=== PATIENT | female | born 1960 | race Caucasian/White ===

== ENCOUNTER → 2018-09-30 | Outpatient (CLI) | payer OTHER | LOC: CIMAGING 14:11 | PROVIDERS: ATTEND Orthopaedic Surgery | DX: Z01.818 Encounter for other preprocedural examination (principal); M17.11 Unilateral primary osteoarthritis, right knee ==

== ENCOUNTER 2018-10-11 05:54 | Inpatient (IN) | payer OTHER ==
--- NOTE | 2018-10-10 12:57 | PDGENHP ---
History & Physical Chief Complaint: Right knee osteoarthritis History of Present Illness: Tracy is a pleasant 57 year old female with right knee osteoarthritis. She has undergone conservative treatment and has persistent pain which is limiting her daily life. She has elected to proceed with right total knee arthroplasty. Pertinent Past, Social, Family History: PMH: arthritis, thryoid problems. SH: nonsmoker. FH: non-contributory Relevant Physical Exam: Patient is a 57-year-old female. HEENT: Pupils equal, round, and reactive to light. CHEST: Clear to auscultation. HEART: Regular rate and rhythm. ABDOMEN: Soft, nontender. EXTREMITIES: Right knee has mild varus bow with osteophytic spurring noted to the patellofemoral medial compartment. Cardiorespiratory Assessment: RRR, CTAB
[2018-10-11] MEDS ORDERED: TRANEXAMIC ACID 3,000 MG in NS (SYRINGE) 50 ML IRR ONE (06:00)
[2018-10-11] MEDS ORDERED: ROPIVACAINE 0.2% 80 MG, EPINEPHrine 0.2 MG, KETOROLAC TROMETHAMINE 30 MG, morphINE 10 M... IU ONE (06:00)
[2018-10-11] MEDS ORDERED: ceFAZolin 2 GM/DEXTROSE 100 ML IV ONE (06:07)
[2018-10-11] MEDS ORDERED: LR 1,000 ML IV ONE (06:08)
[2018-10-11] MEDS ORDERED: POLYMYXIN B SULFATE 500,000 UNIT/10 ML SYR IRR ONE (06:39)
[2018-10-11] MEDS ORDERED: CALCIUM CHLORIDE 1 GM/10 ML INJ ONE (06:39)
[2018-10-11] MEDS ORDERED: THROMBIN (BOVINE) 5,000 UNIT VIAL TP ONE (06:39)
[2018-10-11] MEDS ORDERED: BUPIVACAINE/EPI 0.5% 30 ML SDV ONE (06:40)
[2018-10-11] MEDS ORDERED: BACITRACIN 50,000 UNITS/10 ML SYR IRR ONE (06:40)
[2018-10-11] MEDS ORDERED: TRANEXAMIC ACID 3,000 MG/50 ML BAG IRR ONE (06:41)
--- NOTE | 2018-10-11 06:42 | PDANEPAE ---
ANE History of Present Illness oA here for TKA ANE Past Medical History - Cardiovascular History Hx Hypertension: No Hx Arrhythmias: No Hx Chest Pain: No Hx Coronary Artery / Peripheral Vascular Disease: No Hx CHF / Valvular Disease: No Hx Palpitations: No - Pulmonary History Hx COPD: No Hx Asthma/Reactive Airway Disease: No Hx Recent Upper Respiratory Infection: No Hx Oxygen in Use at Home: No Hx Sleep Apnea: No Sleep Apnea Screening Result - Last Documented: Negative - Neurologic History Hx Cerebrovascular Accident: No Hx Seizures: No Hx Dementia: No - Endocrine History Hx Diabetes: No - Renal History Hx Renal Disorders: No - Liver History Hx Hepatic Disorders: No - Neurological & Psychiatric Hx Hx Neurological and Psychiatric Disorders: No - Cancer History Hx Cancer: No - Congenital Disorder History Hx Congenital Disorders: No - GI History Hx Gastrointestinal Disorders: No - Other Health History Other Health History: none - Chronic Pain History Chronic Pain: No - Surgical History Prior Surgeries: breast aumentation 2016 ANE Review of Systems Review of Systems: - Exercise capacity Exercise capacity: >=4 METS METS (RN): 6 METS ANE Patient History - Allergies Allergies/Adverse Reactions: No Known Allergies Allergy (Verified 10/03/18 08:45) - Home Medications Home Medications: Acetaminophen [Tylenol ES 500 mg (*)] 1,000 mg PO HS 10/03/18 [Last Taken Unknown] Acetaminophen [Tylenol ES 500 mg (*)] 500 - 1,000 mg PO BID@, PRN 10/03/18 [ Last Taken 10/10/18 22:00] Ascorbic Acid [Vitamin C 500 mg (*)] 500 mg PO DAILY 10/03/18 [Last Taken 08:00] Doxylamine Succinate [Unisom] 25 mg PO HS PRN 10/03/18 [Last Taken 10/10/18 22: 00] Herbals/Supplements -Info Only 1 ea PO DAILY 10/03/18 [Last Taken 10/03/18] Pregabalin [Lyrica 50mg (*)] 50 mg PO HS 10/03/18 [Last Taken 10/10/18 22:00] Valacyclovir HCl [Valtrex] 1,000 mg PO TID PRN 10/03/18 [Last Taken 10/08/18] traZODone [traZODONE 50MG (*)] 50 mg PO HS 10/03/18 [Last Taken 10/10/18 22:00] Levothyroxine Sodium 88 mcg 10/05/18 [Last Taken 10/10/18 08:00] - NPO status NPO Status: no food or drink >8 hours NPO Since - Liquids (Date): 10/11/18 NPO Since - Liquids (Time): 04:00 NPO Since - Solids (Date): 10/10/18 NPO Since - Solids (Time): 23:00 - Anes Hx Anes Hx: no prior problems - Smoking Hx Smoking Status: Never smoked - Alcohol Use Alcohol Use: None - Family Anes Hx Family Anes Hx: none Family Hx Anesthesia Complications: none ANE Labs/Vital Signs - Vital Signs Vital Signs: reviewed preoperatively; see RN documention for details Height: 172.72 cm Weight: 87.543 kg ANE Physical Exam - Airway Neck exam: FROM Mallampati Score: Class 2 Mouth exam: normal dental/mouth exam - Pulmonary Pulmonary: no respiratory distress, clear to auscultation - Cardiovascular Cardiovascular: regular rate and rhythym, no murmur, rub, or gallop - ASA Status ASA Status: II ANE Anesthesia Plan Anesthesia Plan: GA with mask, spinal Regional Anesthesia: single shot NB, adductor canal FNB Total IV Anesthesia: Yes
[2018-10-11] MEDS ORDERED: MIDAZOLAM 2 MG/2 ML VIAL IVP ONE (06:43)
[2018-10-11] MEDS ORDERED: PROPOFOL/EMULSION 500 MG/50 ML BOTTLE IV ONE ×2 (06:52→08:22)
--- NOTE | 2018-10-11 07:13 | PDHPUP ---
History & Physical Update H&P update statement: This history and physical update is based on an assessment of the patient which was completed after admission or registration (within 24 hours), but prior to the surgery/procedure. H&P update: H&P reviewed & patient examined, no change in patient's condition since H&P completed
[2018-10-11] MEDS ORDERED: NALOXONE HCL 0.4 MG/ML INJ IVP PRN (08:04)
[2018-10-11] MEDS ORDERED: ACETAMINOPHEN 500 MG TAB PO PRN (08:04)
[2018-10-11] MEDS ORDERED: PROMETHAZINE HCL 25 MG/ML INJ IVP PRN ×2 (08:04→09:13)
[2018-10-11] MEDS ORDERED: ONDANSETRON 4 MG/2 ML VIAL IVP PRN (08:04)
[2018-10-11] MEDS ORDERED: HYDROCODONE/APAP 5/325 TAB PO PRN (08:04)
[2018-10-11] MEDS ORDERED: DIAZEPAM 10 MG/2 ML SYR IVP PRN (08:04)
[2018-10-11] MEDS: POVIDONE-IODINE 20 ML in SODIUM CL IRRIG SOLUTION 500 ML IRR ONE ×2 (08:46→09:08)
[2018-10-11] MEDS ORDERED: DIPHENOXYLATE/ATROPINE LOMOTIL 1 TAB PO PRN (09:13)
[2018-10-11] MEDS ORDERED: POLYETHYLENE GLYCOL 3350 17 GM PKT PO PRN (09:13)
[2018-10-11] MEDS ORDERED: TAPENTADOL HCL 50 MG TAB PO PRN (09:13)
[2018-10-11] MEDS ORDERED: METOCLOPRAMIDE 10 MG/2 ML VIAL IVP PRN (09:13)
[2018-10-11] MEDS ORDERED: TEMAZEPAM 15 MG CAP PO PRN (09:13)
[2018-10-11] MEDS ORDERED: ONDANSETRON DISINTEGRATING 4 MG TAB PO PRN (09:13)
[2018-10-11] MEDS ORDERED: MAGNESIUM HYDROXIDE 30 ML UDCUP PO PRN (09:13)
[2018-10-11] MEDS ORDERED: PROMETHAZINE HCL 25 MG SUPPR PR PRN (09:13)
[2018-10-11] MEDS ORDERED: CYCLOBENZAPRINE 10 MG TAB PO PRN (09:13)
[2018-10-11] MEDS ORDERED: LACTULOSE 20 GM/30 ML UDCUP PO PRN (09:13)
[2018-10-11] MEDS ORDERED: BISACODYL 10 MG SUPP PR PRN (09:13)
--- NOTE | 2018-10-11 09:13 | POSTOPPROG ---
Post Op Note Date of Operation: 10/11/18 Surgeon: Nilam Escobar Field Services Manager: coltrain Anesthesia: Epidural, IV Sedation, Other (Specify) Pre-op Diagnosis: r knee oa Procedure: r tkr Inf/Abcess present in the surg proc area at time of surgery?: No Depth: Deep Incisional (Fascial) EBL: 100-500
[2018-10-11] MEDS ORDERED: LR 1,000 ML IV SCH (09:30)
--- NOTE | 2018-10-11 09:30 | POSTANESTH ---
Post Anesthetic Evaluation Cardiovascular Status: Normal, Stable, Similar to Pre-Op Cond Respiratory Status: Normal, Stable, Similar to Pre-op Cond. Level of Consciousness/Mental Status: Can Participate in Eval, Alert and Oriented Pain Control: Adequate, Prn Tx Ordered Nausea/Vomiting Control: Adequate, Prn Tx Ordered Complications Possibly Related to Anesthesia: None Noted
[2018-10-11] MEDS ORDERED: fentaNYL 100 MCG/2 ML INJ ONE (09:32)
[2018-10-11] MEDS: fentaNYL 100 MCG/2 ML INJ IVP PRN ×2 (09:36→09:47)
[2018-10-11] MEDS ORDERED: valACYclovir 500 MG TAB PO PRN (09:45)
[2018-10-11] MEDS ORDERED: HYDROmorphONE/DILAUDID 1 MG/ML INJ ONE (09:59)
[2018-10-11] MEDS: HYDROmorphONE/DILAUDID 1 MG/ML INJ IVP PRN ×3 (09:59→10:20)
[2018-10-11] MEDS ORDERED: oxyCODONE IR 5 MG TAB ONE (10:15)
[2018-10-11] MEDS: oxyCODONE IR 5 MG TAB PO PRN ×7 (10:17→22:32)
--- NOTE | 2018-10-11 10:54 | GOP ---
[f rep st] OPERATIVE REPORT DATE OF OPERATION: 10/11/2018 SURGEON: Nilam Escobar MD SALON STYLIST: Daniel Villaseñor, CSFA, LSA, whose presence was medically necessary. ANESTHESIA: LMA plus adductor nerve block per surgeon request. PREOPERATIVE DIAGNOSIS: Right knee osteoarthritis. POSTOPERATIVE DIAGNOSIS: Right knee osteoarthritis. PROCEDURE PERFORMED: Right total knee arthroplasty with Issa robot. FINDINGS: INDICATIONS: This is a 57-year-old female with a several-month history of right knee pain worsening with use and with time despite multiple conservative measures. A recent MRI reveals medial and later al meniscal tears, along with severe osteoarthritic changes. She wishes to have surgery in order to resolve the problem. DESCRIPTION OF PROCEDURE: The patient was brought to the operating room after the right side had bee n identified as the correct side by the patient, nurse, and physician. Once in the operating room, s he was placed under general anesthesia using LMA. She had a tourniquet placed around the upper porti on of the right thigh. The right lower extremity was then sterilely prepped and draped in usual [facility] ion using GSI solution. Once prepped and draped, the limb was exsanguinated, tourniquet inflated to 250 mmHg. A linear incision was made on the anterior portion of the knee 1 handbreadth above and below the hernandez lla with sharp dissection carried down through the skin and subcutaneous layers with bleeding control led using electrocautery. Tibial and femoral array markers were put into place, and then femoral and tibial computer arrays were drilled into the bone and put into place and locked into place. Registr ation was done with the computer moving the leg in a clockwise fashion and being able to aimee the med ial and lateral malleoli. Marking was then done for the femur and the tibia and then rechecks were d one using the computer once positioned. The ACL and the medial and lateral menisci were removed. Th e robot MAKOplasty arm was brought in attached to the saw. Measurements were done with the saw, and the saw was used to complete the distal femoral cut, anterior cut, chamfer cuts, and posterior cuts f or the femur, and then for the tibia, a size 4 tibial trial was put into place, along with polyethyle ne insert, and the knee was able to achieve full extension. Good stability in varus/valgus stresses. Therefore, the trials were removed. Tibia was brought to maximal flexion. Tibia subluxed anteriorly . A size 4 tray trial was put into place, had a slight external rotation. Once pinned into place, a keel punch passed through the tibia. The trial was removed, as well as the keel punch, and then the drill guide placed on the proximal tibia, and drill holes were made, at which point a size 4 Triathl on Tritanium tibial component was put into place and noted to fit securely. A size 4 right cruciate- retaining femoral component from Mayer was put into place and noted to fit securely, and then a siz e four 9 mm Triathlon tibial insert was put into place and noted to fit securely. The knee was able to, again, achieve full extension. The leg brought to full extension. The patella was everted, held in place with towel clamps. Spurs were removed from around the patella, and soft tissue dissection was carried around the patella. The patella was measured to be 20 mm in thickness. Oscillating saw was used to remove the posterior portion of the patella, leaving 14 mm of bone. Multiple trials were placed on the patella, noting a 32 mm button fit best. Therefore, lug holes were drilled for a 32 m m button, and a 32 mm asymmetric Triathlon Tritanium patella from Mayer was put into place and note d to fit securely. Joint cocktail was injected into the posterior capsule, the periosteum of the femur, the tibia, as we ll as the extensor mechanism. The wound was then irrigated with Betadine solution and then irrigated with tranexamic acid. Tourniquet was deflated at 53 minutes. Bleeding was controlled using electro cautery. The wound was then closed in layers to include 0 Vicryl suture in [id number] type stit ch for the extensor mechanism, 0 Vicryl and 2-0 Vicryl suture for the subcutaneous layers, and a 3-0 V-Loc suture in a running subcuticular stitch for the skin. 30 cc of Marcaine was infused around the actual incision itself, and then the wound was dressed with Xeroform, 4 x 4's, wrapped in Kerlix. L eg was completely undraped in the operating room. Tourniquet removed from the thigh and Elieser wrap nils rafa around the knee. The patient was woken up, extubated, transferred onto a stretcher, and sent to recovery room in good condition where she underwent an adductor canal nerve block. TOURNIQUET TIME: 53 minutes. /[id number]/MODL
[2018-10-11] MEDS: traMADol 50 MG TAB PO SCH ×3 (11:30→23:51)
[2018-10-11] MEDS: KETOROLAC 15 MG/1 ML SDV IVP SCH ×3 (11:32→23:51)
[2018-10-11] MEDS: ONDANSETRON 4 MG/2 ML VIAL IVP PRN ×2 (13:59→22:31)
[2018-10-11] MEDS: ACETAMINOPHEN 325 MG TAB PO SCH ×2 (15:12→21:39)
[2018-10-11] MEDS: ceFAZolin 2 GM/DEXTROSE 100 ML IV SCH ×2 (15:12→21:39)
--- NOTE | 2018-10-11 18:06 | PDMN ---
Medical Necessity Medical necessity: [facility] S700 Knee Arthroplasty, Total, A-2 days: 57 yo s/p R TKA , admit IP status for pain control and PT/OT.
[2018-10-11] MEDS: diphenhydrAMINE 25 MG CAP PO PRN (20:10)
[2018-10-11] MEDS: FAMOTIDINE 20 MG TAB PO SCH (20:10)
[2018-10-11] MEDS: SENNOSIDES/DOCUSATE SODIUM TAB PO SCH (20:10)
[2018-10-11] MEDS ORDERED: PREGABALIN 50 MG CAP PO SCH (21:00)
[2018-10-11] MEDS ORDERED: traZODone 50 MG TAB PO SCH (21:00)
[2018-10-12] MEDS: oxyCODONE IR 5 MG TAB PO PRN ×4 (01:05→11:58)
[2018-10-12] MEDS: diphenhydrAMINE 25 MG CAP PO PRN ×3 (01:05→11:59)
[2018-10-12] MEDS: ACETAMINOPHEN 325 MG TAB PO SCH ×2 (03:22→12:00)
[2018-10-12] MEDS: traMADol 50 MG TAB PO SCH ×2 (05:55→11:59)
[2018-10-12] MEDS: KETOROLAC 15 MG/1 ML SDV IVP SCH (05:55)
[2018-10-12] MEDS: FAMOTIDINE 20 MG TAB PO SCH (07:38)
[2018-10-12] MEDS: SENNOSIDES/DOCUSATE SODIUM TAB PO SCH (07:39)
[2018-10-12] MEDS ORDERED: LEVOTHYROXINE 100 MCG TAB PO SCH (08:00)
--- NOTE | 2018-10-12 08:52 | SOAPPROG ---
SOAP Progress Note Assessment/Plan: Assessment: 57 year old female s/p right TKA - POD 1 Plan: Continue d/c planning - likely home today. Reports she has home health/PT arranged Continue VTE ppx- Xarelto x 10 days, ARNIE carbajal Continue oral pain medication - oxycodone, tramadol, tylenol, celebrex, nucynta , flexeril ordered. Has scripts for oxycodone and Tramadol already at home. Maryacatherine called into her pharmacy Continue PT/OT efforts - will need to be cleared by PT Subjective: Patient states she is feeling pretty good, the pain after surgery is not as bad as she was expecting. She does experience some nausea after taking narcotics and would like deepa called into her pharmacy. She has home health/PT already arranged. She denies SOB, CP, fever, chills. Objective: Vital Signs Temp Pulse Resp BP Pulse Ox 36.4 C 60 16 102/58 L 94 10/12/18 07:41 10/12/18 07:41 10/12/18 07:41 10/12/18 07:41 10/12/18 07:41 Laboratory Results 10/12/18 04:20 10/11/18 10/12/18 10/13/18 05:59 05:59 05:59 Intake Total 1880 200 Output Total 1300 600 Balance 580 -400 Patient resting in bed, no acute distress. RLE: Surgical wound dressings are clean, dry and intact. Lower leg compartments are soft and nontender. Negative Homans sign bilaterally. She can actively DF and PF her right foot and great toe against resistance. Grossly NVI distally. ICD10 Worksheet Patient Problems: Problems Problem Status Onset Unilateral primary osteoarthritis, right knee Acute
[2018-10-12] MEDS ORDERED: RIVAROXABAN 10 MG TAB PO SCH (09:00)
[2018-10-12] MEDS: ONDANSETRON 4 MG/2 ML VIAL IVP PRN (10:07)
--- NOTE | 2018-10-12 10:15 | PDDCSUM ---
Discharge Summary Discharge Summary: ADMISSION DIAGNOSIS: Right knee severe degenerative arthritis DISCHARGE DIAGNOSIS: Right knee severe degenerative arthritis OPERATION PERFORMED: October 11, 2018 Right total knee arthroplasty POSTOPERATIVE COMPLICATIONS: None CONDITION ON DISCHARGE: Improved HPI: The patient is a 57 year old female who has end-stage arthritis of her right knee. Clinical and radiographic features are consistent with this. Patient has failed attempts at conservative management, therefore, recommended operative right total knee replacement. DESCRIPTION OF HOSPITAL COURSE: The patient was admitted to the hospital on the morning of surgery and underwent a right total knee arthroplasty. Postoperatively, patient was treated with multimodal DVT prophylaxis, including Xarelto, ARNIE hose, foot pumps. Patient was seen by PT and made good progress with ambulation and stairs. On the first post-operative day the patients H&H was 12.5/38.0. Patient was able to void spontaneously. At the time of discharge , patient was afebrile, wound was clean and dry. Patient is walking with a walker. DISPOSITION: The patient is discharged home with home health and will have outpatient PT in the next couple weeks. Patient may progress to full weightbearing on the right lower extremity as tolerated. ARNIE stockings and Xarelto until 10 days post-op. Patient has prescriptions for oxycodone and Tramadol for pain control. Rosalva was called into her pharmacy. The patient will be seen by Dr. Jay office in approximately 2 weeks. If there are any problems, patient is to call Dr. Jay office.
--- NOTE | 2018-10-12 10:33 | PDIAF ---
- Diagnosis Diagnosis: Right knee osteoarthritis Code Status: Full Code - Medication Management Discharge Medications: electronically signed and located in the Home Medication List. - Orders Services needed: Home Care, Physical Therapy, Occupational Therapy Home Care Face to Face: I certify that this patient was under my care and that I had the required [id number] encounter meeting the encounter requirements on the discharge day. My findings support the fact that the patient is homebound as defined in Home Care Face to Face Continued: CMS Chapter 7 Medicare Benefits Manual 30.1.1 , The condition of the patient is such that there exists a normal inability to leave home and consequently, leaving home would require a considerable and taxing effort. Diet Recommendation: no restrictions on diet Diet Texture: Regular Texture Diet Arnie Stockings Discontinue Date: 10 days post-op Wound Care Instructions: Keep dressings clean, dry and in place for 7 days. Activity/Weight Bearing Restrictions: WBAT, may use walker or cane as needed Additional Instructions: Weight bearing as tolerated right lower extremity. Initiate PT and home exercises for ROM {range of motion}, strengthening, and gait training. Keep dressing clean and dry for 7 days and then may removed dressing. ARNIE hose and Xarelto x 10 days post op. Follow up in 14 days for repeat evaluation and wound check. - Follow Up Care Current Providers and Referrals: Doctor Not,On Staff, [Primary Care Provider] - Nilam Escobar MD [Medical Doctor] - follow up in 2 weeks
--- NOTE | 2018-10-12 11:21 | ASMTLACE ---
COLBY Length of stay for Answers: 1 day current admission Acuity / Level of Answers: Yes Care: Did the patient have an inpatient admission? # of Emergency department Answers: 0 visits in the last 6 months Score: 4 Date Signed: 10/12/2018 11:20 AM Electronically Signed By:ANALIA Petersen
--- NOTE | 2018-10-12 11:23 | ASMTCMCOM ---
CM Note CM Note Notes: Pt had planned OA of knee, resides with . Pt medically stable for d/c with [facility] which was pre-arranged by MD office. Jennifer with [facility] was updated about pt d/c, they have a PT assigned to her. Referral sent to [facility] in [employer]. Date Signed: 10/12/2018 11:22 AM Electronically Signed By:ANALIA Petersen
[2018-10-12 13:09] VITALS: BP 96/61
--- NOTE | 2018-10-12 14:04 | ASDISCHSUM ---
Discharge Information Plan Status:Home with Home Health Medically Cleared to Leave: Discharge Date:10/12/2018 01:36 PM CM D/C Disposition: ADT D/C Disposition:[id number] Projected Discharge Date:10/12/2018 11:00 AM Transportation at D/C: Discharge Delay Reason: Follow-Up Date:10/12/2018 11:00 AM Discharge Slot: Final Diagnosis: Placement Information Referral Type:*Home Health Care Services Referral ID:[id number] Provider Name:[facility] Address 1:[address] Address 2: City:[place] Selection Factors: State:[place] Patient Contact Information Contact Name:LENASHANEMISAEL Relationship: Address:[address] City:[place] Alternate Phone: State/Zip Code:[place] [address] Email: Financial Information Financial Class:[employer] [facility] Primary Plan Number:[id number] Secondary Plan Desc: Secondary Plan Number: Assessment Information LACE LACE Length of stay for Answers: 1 day current admission Acuity / Level of Answers: Yes Care: Did the patient have an inpatient admission? # of Emergency department Answers: 0 visits in the last 6 months Score: 4 Date Signed: 10/12/2018 11:20 AM Electronically Signed By:ANALIA Petersen [facility] CARIE Progress Note CM Note CM Note Notes: Pt had planned OA of knee, resides with . Pt medically stable for d/c with [facility] which was pre-arranged by MD office. Jennifer with [facility] was updated about pt d/c, they have a PT assigned to her. Referral sent to [facility] in [employer]. Date Signed: 10/12/2018 11:22 AM Electronically Signed By:ANALIA Petersen Intervention Information
== END 2018-10-12 13:36 | disposition home health service (06) | DRG 470 ==
LOC: F3N 05:54
PROVIDERS: ADMIT Orthopaedic Surgery; ATTEND Orthopaedic Surgery
PROC: 0SRC0JA Replacement of Right Knee Joint with Synthetic Substitute, Uncemented, Open Approach (ICD-10-PCS; principal; 2018-10-11 07:15)
DX: M17.11 Unilateral primary osteoarthritis, right knee (principal)
CPT/HCPCS: 97110-GP; 97116-GP; 97161-GP; 97165-GO; J0171; J0690; J1170; J1885; J2250; J2270; J2405; J2704; J2795; J3010